=== PATIENT | male | born 1955 | race Hispanic/Latino ===

== ENCOUNTER 2020-06-22 18:00 | Inpatient (IN) | payer MEDICARE ==
[~2020-06-22 18:00] MED LIST: Iopamidol-370 76% 500 ML 1 ML ONE
[2020-06-22 18:49] LABS: #Basophils 0.1 thou/uL (0.0-0.2); #Eosinphils 0.5 thou/uL (0.0-0.7); #Lymphocytes 2.8 thou/uL (1.20-3.40); #Monocytes 0.5 thou/uL (0.11-0.59); #Neutrophils 8.7 thou/uL (1.40-6.50); %Basophils 0.6 % (0.0-1.0); %Eosinophils 3.7 % (0.0-10.0); %Lymphocytes 22.4 % (21.0-51.0); %Monocytes 4.2 % (0.0-10.0); Hemoglobin 13.8 g/dL (14.0-18.0); Mean Corpuscular HGB CONC 33.2 g/dL (32.0-36.0); Mean Corpuscular Hemoglobin 31.5 pg (27.0-31.0); Mean Corpuscular Volume 94.9 fL (78.0-98.0); Mean Platelet Volume 11.3 fL (7.4-10.4); Platelet Count 174 thou/uL (130-400); RBC Distribution Width 12.6 % (11.5-14.5); Red Blood Cell (RBC) Count 4.37 mill/uL (4.70-6.10); White Blood Cell (WBC) Count 12.5 thou/uL (4.8-10.8)
[2020-06-22] MEDS ORDERED: Diltiazem 125 MG/25 ML ONE (19:12)
[2020-06-22] MEDS ORDERED: Lorazepam 2 MG/ML VIAL ONE (19:26)
[2020-06-22] MEDS ORDERED: SODIUM CHLORIDE 0.9% IVPB SCH (20:00)
[2020-06-22] MEDS ORDERED: FOSPHENYTOIN SODIUM IVPB SCH (20:00)
[2020-06-22 20:45] LABS: ALT (SGPT) 29 U/L (8-55); AST (SGOT) 53 U/L (5-34); Albumin 4.9 g/dL (3.4-4.8); Alcohol Less than 10 mg/dL (Less than 10); Alkaline Phosphatase 99 U/L (40-110); Anion Gap 23 mmol/L (10-20); BUN (Urea Nitrogen) 9 mg/dL (8.4-25.7); Bilirubin, Total 0.6 mg/dL (0.2-1.2); Calc. Creatinine Clearance 0 mL/min (70-130); Calcium 9.4 mg/dL (7.8-10.44); Carbon Dioxide 22 mmol/L (23-31); Chloride 102 mmol/L (98-107); Globulin 4.1 g/dL (2.4-3.5); Glucose 143 mg/dL (80-115); Potassium 4.1 mmol/L (3.5-5.1); Sodium 143 mmol/L (136-145)
[2020-06-22] MEDS ORDERED: Multivitamins, Adult 10 ML, Thiamine HCl 100 MG, Folic Acid 1 MG in Dextrose 5 %-0.45 %... IV SCH (21:00)
[2020-06-22 21:52] LABS: SARS-CoV-2 NAA Rapid Test Not Detected (NotDetected)
[2020-06-23 03:05] VITALS: BMI 23.7
[2020-06-23] MEDS ORDERED: FLU VACC QS2020-21(65YR UP)/PF 240 MCG/0.7 ML SYRINGE IM ONE (09:00)
[2020-06-23] MEDS ORDERED: Ondansetron PF 4 MG/2 ML Vial IVP PRN (10:54)
[2020-06-23] MEDS ORDERED: Calcium Carbonate 500 MG ChewTAB PO PRN (10:54)
[2020-06-23] MEDS ORDERED: Senokot S 8.6-50 MG TAB PO PRN (10:54)
[2020-06-23] MEDS ORDERED: Acetaminophen 325 MG TAB PO PRN (10:54)
[2020-06-23] MEDS ORDERED: Bisacodyl 10 MG SUPP PR PRN (10:54)
[2020-06-23] MEDS ORDERED: Guaifenesin DM 100-10/5 ML UDCUP PO PRN (10:54)
[2020-06-23] MEDS ORDERED: Digoxin 0.125 MG TAB PO SCH (12:00)
[2020-06-23] MEDS ORDERED: Enoxaparin Sodium 40 MG/0.4 ML SYRINGE SC SCH (12:00)
[2020-06-23] MEDS ORDERED: Amlodipine 5 mg/Benazepril 20 mg CAP PO SCH (12:00)
[2020-06-23] MEDS ORDERED: Aspirin 81 mg Enteric Coated Tablet PO SCH (12:00)
[2020-06-23] MEDS ORDERED: levETIRAcetam 500 MG TAB PO SCH (12:15)
[2020-06-23] MEDS ORDERED: Lorazepam 2 MG/ML VIAL SLOW IVP SCH (13:15)
[2020-06-23] MEDS: Multivitamins, Adult 10 ML, Folic Acid 1 MG, Thiamine HCl 100 MG in Dextrose 5 %-0.45 %... IV SCH (17:50)
[2020-06-23] MEDS ORDERED: LEVETIRACETAM 1000 MG PO SCH (21:00)
[2020-06-23] MEDS: Atorvastatin Calcium 40 MG TAB PO SCH (22:17)
[2020-06-23] MEDS: levETIRAcetam 500 MG TAB PO SCH (22:18)
[2020-06-24 05:41] LABS: #Basophils 0.1 thou/uL (0.0-0.2); #Eosinphils 0.6 thou/uL (0.0-0.7); #Lymphocytes 3.1 thou/uL (1.20-3.40); #Monocytes 0.8 thou/uL (0.11-0.59); #Neutrophils 3.1 thou/uL (1.40-6.50); %Basophils 1.3 % (0.0-1.0); %Eosinophils 7.6 % (0.0-10.0); %Lymphocytes 40.7 % (21.0-51.0); %Monocytes 10.3 % (0.0-10.0); %Neutrophils 40.1 % (42.0-75.0); Hemoglobin 14.3 g/dL (14.0-18.0); Mean Corpuscular HGB CONC 32.7 g/dL (32.0-36.0); Mean Corpuscular Hemoglobin 31.1 pg (27.0-31.0); Mean Corpuscular Volume 95.3 fL (78.0-98.0); Mean Platelet Volume 10.3 fL (7.4-10.4); Platelet Count 163 thou/uL (130-400); RBC Distribution Width 12.9 % (11.5-14.5); Red Blood Cell (RBC) Count 4.58 mill/uL (4.70-6.10); White Blood Cell (WBC) Count 7.7 thou/uL (4.8-10.8)
[2020-06-24 06:01] LABS: Anion Gap 12 mmol/L (10-20); BUN (Urea Nitrogen) 8 mg/dL (8.4-25.7); Calc. Creatinine Clearance 75 mL/min (70-130); Calcium 8.4 mg/dL (7.8-10.44); Carbon Dioxide 29 mmol/L (23-31); Cardiac Risk 1.8 (Less than 4.5); Chloride 104 mmol/L (98-107); Cholesterol 100 mg/dl (< 200 Desired); Glucose 115 mg/dL (80-115); HDL Cholesterol 56 mg/dL (>60 Neg Risk); LDL Cholesterol, Calculated 34 mg/dL; Potassium 3.4 mmol/L (3.5-5.1); Sodium 142 mmol/L (136-145); Triglycerides 49 mg/dL (Less than 150)
[2020-06-24] MEDS: Sodium Chloride 0.9% 10 ML ONE ×2 (06:29→06:31)
[2020-06-24 07:29] LABS: Amphetamine Not Detected (NotDetected); Barbiturates Screen Detected (NotDetected); Benzodiazepine Screen Detected (NotDetected); Cocaine Metabolite Screen Not Detected (NotDetected); Medtox Control Line Valid? VALID (VALID); Medtox Reader # READER 1; Methadone Not Detected (NotDetected); Methamphetamine Not Detected (NotDetected); Opiate Screen Not Detected (NotDetected); Oxycodone Screen Not Detected (NotDetected); Phencyclidine (PCP) Not Detected (NotDetected); THC/Cannabinoid Screen Not Detected (NotDetected); Tricyclic Screen Not Detected (NotDetected)
[2020-06-24] MEDS: Aspirin 81 mg Enteric Coated Tablet PO SCH (08:26)
[2020-06-24] MEDS: Digoxin 0.125 MG TAB PO SCH (08:26)
[2020-06-24] MEDS: levETIRAcetam 500 MG TAB PO SCH ×2 (08:28→20:32)
[2020-06-24] MEDS: Enoxaparin Sodium 40 MG/0.4 ML SYRINGE SC SCH (08:32)
[2020-06-24] MEDS ORDERED: Amlodipine 5 mg/Benazepril 20 mg CAP PO SCH ×2 (09:00)
[2020-06-24] MEDS: Multivitamins, Adult 10 ML, Folic Acid 1 MG, Thiamine HCl 100 MG in Dextrose 5 %-0.45 %... IV SCH (16:54)
[2020-06-24] MEDS: Atorvastatin Calcium 40 MG TAB PO SCH (20:31)
[2020-06-25 08:06] VITALS: BP 127/82; TEMP 97.6
[2020-06-25] MEDS ORDERED: Thiamine 100 MG TAB PO SCH (09:00)
[2020-06-25] MEDS ORDERED: Folic Acid 1 MG TAB PO SCH (09:00)
[2020-06-25] MEDS: Aspirin 81 mg Enteric Coated Tablet PO SCH (09:31)
[2020-06-25] MEDS: Enoxaparin Sodium 40 MG/0.4 ML SYRINGE SC SCH (09:31)
[2020-06-25] MEDS: Digoxin 0.125 MG TAB PO SCH (09:31)
[2020-06-25] MEDS: levETIRAcetam 500 MG TAB PO SCH (09:32)
== END 2020-06-25 11:14 | disposition home or self-care (01) | DRG 100 ==
LOC: ERS 18:00 → 3SE 19:22
PROVIDERS: ADMIT Internal Medicine; ATTEND Internal Medicine
DX: G40.909 Epilepsy, unspecified, not intractable, without status epilepticus (principal); G92 Toxic encephalopathy; G45.9 Transient cerebral ischemic attack, unspecified; F10.139 Alcohol abuse with withdrawal, unspecified; I16.1 Hypertensive emergency; I69.351 Hemiplegia and hemiparesis following cerebral infarction affecting right dominant side; I10 Essential (primary) hypertension; I48.0 Paroxysmal atrial fibrillation; Z20.822 Contact with and (suspected) exposure to COVID-19; Y90.0 Blood alcohol level of less than 20 mg/100 ml; I25.10 Atherosclerotic heart disease of native coronary artery without angina pectoris; E78.5 Hyperlipidemia, unspecified; Z79.899 Other long term (current) drug therapy; Z79.82 Long term (current) use of aspirin
CPT/HCPCS: 0240U; 36415; 36416; 70450; 70496; 70498; 70551; 80048; 80053; 80061; 80306; 80307; 82607; 82746; 85025; 87040; 87086; 93005; 93306; 96365; 96366; 96367; 96375; 96376; J1650; J2060; J3411; J7042; Q2009; Q9967

== ENCOUNTER 2020-11-09 14:50 | Inpatient (IN) | payer MEDICARE ==
[2020-11-09 15:44] LABS: #Lymphocytes 1.5 thou/uL (1.20-3.40); #Monocytes 0.4 thou/uL (0.11-0.59); #Neutrophils 14.3 thou/uL (1.40-6.50); %Basophils 0.1 % (0.0-1.0); %Eosinophils 0.1 % (0.0-10.0); %Lymphocytes 9.1 % (21.0-51.0); %Monocytes 2.7 % (0.0-10.0); %Neutrophils 88.1 % (42.0-75.0); Hemoglobin 15.4 g/dL (14.0-18.0); Mean Corpuscular HGB CONC 33.4 g/dL (32.0-36.0); Mean Corpuscular Hemoglobin 31.5 pg (27.0-31.0); Mean Corpuscular Volume 94.4 fL (78.0-98.0); Mean Platelet Volume 9.9 fL (7.4-10.4); Platelet Count 172 thou/uL (130-400); RBC Distribution Width 13.5 % (11.5-14.5); Red Blood Cell (RBC) Count 4.89 mill/uL (4.70-6.10); White Blood Cell (WBC) Count 16.3 thou/uL (4.8-10.8)
[2020-11-09 16:06] LABS: ALT (SGPT) 39 U/L (8-55); AST (SGOT) 55 U/L (5-34); Albumin 4.4 g/dL (3.4-4.8); Alkaline Phosphatase 79 U/L (40-110); Anion Gap 17 mmol/L (10-20); BUN (Urea Nitrogen) 13 mg/dL (8.4-25.7); Bilirubin, Total 0.7 mg/dL (0.2-1.2); CK (CPK) 198 U/L (30-200); Calc. Creatinine Clearance 0 mL/min (70-130); Calcium 9.9 mg/dL (7.8-10.44); Carbon Dioxide 24 mmol/L (23-31); Chloride 104 mmol/L (98-107); Globulin 3.9 g/dL (2.4-3.5); Glucose 119 mg/dL (80-115); Potassium 4.2 mmol/L (3.5-5.1); Protein, Total 8.3 g/dL (5.8-8.1); Sodium 141 mmol/L (136-145)
[2020-11-09 16:27] LABS: CKMB 2.5 ng/mL (0-6.6)
[2020-11-09] MEDS ORDERED: levETIRAcetam 500 MG TAB PO SCH (18:30)
[2020-11-09] MEDS ORDERED: Aspirin 325 MG TAB PO SCH (18:30)
[2020-11-09 19:40] LABS: Troponin I 0.032 ng/mL (< 0.028)
[2020-11-09 22:52] LABS: Troponin I 0.018 ng/mL (< 0.028)
[2020-11-09 23:53] LABS: Bilirubin Negative (Negative); Blood, Urine Trace (Negative); Glucose, Urine (Dipstick) Negative (Negative); Ketone, Urine 40 mg/dL (Negative); Leukocyte Negative (Negative); Nitrite Negative (Negative); Protein, Urine (Dipstick) Trace mg/dL (Neg-Trace); Urobilinogen 0.2 mg/dL (Less than 2)
[2020-11-09 23:57] LABS: Clarity Clear (Clear)
[2020-11-10] MEDS ORDERED: hydrALAZINE 20 MG/ML VIAL SLOW IVP PRN (04:10)
[2020-11-10] MEDS ORDERED: Diazepam 5 MG TAB PO PRN (04:40)
[2020-11-10] MEDS ORDERED: Thiamine HCl 200 MG/2 ML VIAL IM SCH (05:00)
[2020-11-10] MEDS ORDERED: Diazepam 5 MG TAB PO SCH (05:00)
[2020-11-10 05:29] LABS: Troponin I 0.035 ng/mL (< 0.028)
[2020-11-10] MEDS ORDERED: Aspirin Chewable 81 MG TAB ONE (10:17)
[2020-11-10] MEDS ORDERED: Folic Acid 1 MG TAB ONE (10:17)
[2020-11-10] MEDS: Folic Acid 1 MG TAB PO SCH (10:20)
[2020-11-10] MEDS: Aspirin 81 mg Enteric Coated Tablet PO SCH (10:20)
[2020-11-10] MEDS: levETIRAcetam 500 MG TAB PO SCH ×2 (10:21→20:39)
[2020-11-10 11:14] LABS: SARS-CoV-2 PCR by NAA Not Detected (NotDetected)
[2020-11-10 13:16] VITALS: BMI 25.9
[2020-11-10] MEDS: Multivitamin W/ Minerals 1 TAB PO SCH (14:42)
[2020-11-11] MEDS ORDERED: Diazepam 5 MG TAB PO PRN (04:00)
[2020-11-11] MEDS: Folic Acid 1 MG TAB PO SCH (08:03)
[2020-11-11] MEDS: levETIRAcetam 500 MG TAB PO SCH (08:03)
[2020-11-11] MEDS: Aspirin 81 mg Enteric Coated Tablet PO SCH (08:03)
[2020-11-11] MEDS: Multivitamin W/ Minerals 1 TAB PO SCH (08:03)
[2020-11-11 08:41] LABS: #Basophils 0.1 thou/uL (0.0-0.2); #Eosinphils 0.2 thou/uL (0.0-0.7); #Lymphocytes 3.5 thou/uL (1.20-3.40); #Monocytes 0.9 thou/uL (0.11-0.59); #Neutrophils 6.4 thou/uL (1.40-6.50); %Basophils 0.7 % (0.0-1.0); %Eosinophils 2.2 % (0.0-10.0); %Lymphocytes 31.4 % (21.0-51.0); %Monocytes 8.1 % (0.0-10.0); %Neutrophils 57.6 % (42.0-75.0); Hemoglobin 16.5 g/dL (14.0-18.0); Mean Corpuscular HGB CONC 32.9 g/dL (32.0-36.0); Mean Corpuscular Hemoglobin 31.9 pg (27.0-31.0); Mean Corpuscular Volume 96.8 fL (78.0-98.0); Platelet Count 180 thou/uL (130-400); RBC Distribution Width 13.5 % (11.5-14.5); Red Blood Cell (RBC) Count 5.18 mill/uL (4.70-6.10)
[2020-11-11 08:55] LABS: ALT (SGPT) 39 U/L (8-55); AST (SGOT) 60 U/L (5-34); Alkaline Phosphatase 70 U/L (40-110); Anion Gap 17 mmol/L (10-20); BUN (Urea Nitrogen) 12 mg/dL (8.4-25.7); Bilirubin, Total 0.7 mg/dL (0.2-1.2); Calc. Creatinine Clearance 63 mL/min (70-130); Calcium 9.2 mg/dL (7.8-10.44); Carbon Dioxide 25 mmol/L (23-31); Chloride 104 mmol/L (98-107); Globulin 3.8 g/dL (2.4-3.5); Glucose 98 mg/dL (80-115); Potassium 3.7 mmol/L (3.5-5.1); Protein, Total 7.8 g/dL (5.8-8.1); Sodium 142 mmol/L (136-145)
[2020-11-11] MEDS ORDERED: Magnesium Oxide 400 MG TAB PO SCH (09:00)
[2020-11-11] MEDS ORDERED: Thiamine 100 MG TAB PO SCH (09:00)
[2020-11-11 18:02] VITALS: BP 135/89; TEMP 98.2
[2020-11-11] MEDS ORDERED: Apixaban 5 MG TAB PO SCH (21:00)
[2020-11-12] MEDS ORDERED: Non-Formulary Item 1 EACH (Multivitamin [Multi-Vitamin Daily] 1 TABLET Tablet) PO SCH (09:00)
[2020-11-12] MEDS ORDERED: Thiamine 100 MG TAB PO SCH (09:00)
[2020-11-12] MEDS ORDERED: Atorvastatin Calcium 40 MG TAB PO SCH (09:00)
[2020-11-12] MEDS ORDERED: Multivit, Therapeutic 1 TAB PO SCH (09:00)
== END 2020-11-11 18:20 | disposition home health service (06) | DRG 100 ==
LOC: ERS 14:50 → ERHOLD 18:36 → 2SE 11-10 12:55
PROVIDERS: ADMIT Internal Medicine; ATTEND Student in an Organized Health Care Education/Training Program
DX: G40.909 Epilepsy, unspecified, not intractable, without status epilepticus (principal); I21.A1 Myocardial infarction type 2; R77.8 Other specified abnormalities of plasma proteins; Z20.822 Contact with and (suspected) exposure to COVID-19; I48.0 Paroxysmal atrial fibrillation; F10.10 Alcohol abuse, uncomplicated; I10 Essential (primary) hypertension; E78.5 Hyperlipidemia, unspecified; Z86.73 Personal history of transient ischemic attack (TIA), and cerebral infarction without residual deficits; Z79.899 Other long term (current) drug therapy; Z79.82 Long term (current) use of aspirin; Z79.01 Long term (current) use of anticoagulants; Z91.14 Patient's other noncompliance with medication regimen
CPT/HCPCS: 36415; 70450; 70551; 71045; 80053; 80061; 81003; 82550; 82553; 84484; 85025; 86140; 93005; 95712; 95819; 95957; J3411; J3475; J3490; U0003; U0005